=== PATIENT | female | born 1950 | race Caucasian/White ===

== ENCOUNTER 2021-05-26 18:05 | Emergency (ER) | payer OTHER, MEDICAID ==
[~2021-05-26] VITALS: Ht 162.6 cm; Wt 81.8 kg
[2021-05-26 18:09] VITALS: BP 150/84
[2021-05-26 19:15] LABS: BASOPHILS % (AUTO) 0.6 % (0.0-2.0); EOSINOPHILS % (AUTO) 1.8 % (1.0-6.0); HEMOGLOBIN 12.3 g/dL (12.0-16.0); LYMPHOCYTES % (AUTO) 38.9 % (22.0-44.0); MEAN CORPUSCULAR HEMOGLOBIN 30.8 pg (26.0-34.0); MEAN CORPUSCULAR HGB CONC 33.3 G/dL (31.0-37.0); MEAN CORPUSCULAR VOLUME 92 fL (80-100); MONOCYTES # (AUTO) 0.8 K/uL (0.1-1.0); NEUTROPHILS # (AUTO) 3.7 K/uL (1.8-7.7); NEUTROPHILS % (AUTO) 48.7 % (40.0-70.0); PLATELET COUNT (AUTO) 204 K/uL (150-450); RED BLOOD CELL COUNT(AUTO) 4.01 MIL/uL (4.00-5.20); RED CELL DISTRIBUTION WIDTH 14.4 % (11.5-14.5)
[2021-05-26 19:27] LABS: ANION GAP 8 mmol/L (8-16); CALCIUM, TOTAL 9.2 mg/dL (8.8-10.5); CARBON DIOXIDE 28 mmol/L (22-29); CHLORIDE 103 mmol/L (98-107); GLUCOSE,RANDOM 104 mg/dL (70-110); POTASSIUM 4.5 mmol/L (3.5-5.1); SODIUM SERUM 139 mmol/L (136-145); UREA NITROGEN, BLOOD 11 mg/dL (7-18)
[2021-05-26 19:30] LABS: GLOMERULAR FILTR. RATE CALC > 60 mL/min (>60)
== END 2021-05-27 01:14 | disposition home or self-care (01) ==
LOC: EMS 18:08
DX: R06.02 Shortness of breath (principal); R09.81 Nasal congestion; I10 Essential (primary) hypertension
CPT/HCPCS: 71046; 80048; 84484; 85025; 85379; 93005; 99285; 36415-L1; 36415-TC

== ENCOUNTER 2022-04-04 21:35 | Emergency (ER) | payer OTHER, MEDICAID ==
[~2022-04-04] VITALS: Ht 162.6 cm; Wt 75.0 kg
[2022-04-05] MEDS ORDERED: SODIUM CHLORIDE 0.9% 500 ML IV ONE (02:15)
[2022-04-05 02:26] LABS: BASOPHILS % (AUTO) 0.6 % (0.0-2.0); EOSINOPHILS % (AUTO) 0.8 % (1.0-6.0); HEMATOCRIT 37.2 % (36-46); HEMOGLOBIN 12.2 g/dL (12.0-16.0); LYMPHOCYTES # (AUTO) 2.4 K/uL (1.0-4.8); LYMPHOCYTES % (AUTO) 29.1 % (22.0-44.0); MEAN CORPUSCULAR HEMOGLOBIN 30.8 pg (26.0-34.0); MEAN CORPUSCULAR HGB CONC 32.7 G/dL (31.0-37.0); MEAN CORPUSCULAR VOLUME 94 fL (80-100); MONOCYTES % (AUTO) 11.8 % (2.0-9.0); NEUTROPHILS # (AUTO) 4.8 K/uL (1.8-7.7); NEUTROPHILS % (AUTO) 57.7 % (40.0-70.0); PLATELET COUNT (AUTO) 165 K/uL (150-450); RED BLOOD CELL COUNT(AUTO) 3.96 MIL/uL (4.00-5.20); RED CELL DISTRIBUTION WIDTH 14.2 % (11.5-14.5)
[2022-04-05 02:36] LABS: CREATININE 0.92 mg/dL (0.60-1.30); POTASSIUM 4.2 mmol/L (3.5-5.1)
[2022-04-05 02:53] LABS: BILIRUBIN,TOTAL 0.4 mg/dL (0.1-1.0); TOTAL PROTEIN, SERUM 7.8 g/dL (6.4-8.2)
[2022-04-05 04:02] VITALS: BP 117/70
[2022-05-12] MEDS ORDERED: LOSA-382 PO (11:51)
[2022-05-12] MEDS ORDERED: PROM118S5 PO (11:51)
[2022-05-12] MEDS ORDERED: LORA10TA7 PO (11:51)
[2022-05-12] MEDS ORDERED: FERR-72 PO (11:51)
[2022-05-12] MEDS ORDERED: CYCL05OE OU (11:51)
[2022-05-12] MEDS ORDERED: LEVO75 PO (11:51)
[2022-05-12] MEDS ORDERED: ATOR20TA65 PO (11:51)
== END 2022-04-05 04:52 | disposition home or self-care (01) ==
LOC: EMS 21:35
DX: R42 Dizziness and giddiness (principal); F41.9 Anxiety disorder, unspecified; I10 Essential (primary) hypertension
CPT/HCPCS: 99285; 80053; 82550; 83880; 84484; 85025; 36415; 71045; 93005; J7040

== ENCOUNTER 2023-03-24 16:50 | Emergency (ER) | payer OTHER ==
[~2023-03-24] VITALS: Ht 160 cm; Wt 65.9 kg
[~2023-03-24 16:50] MED LIST: ATOR20TA65 PO; CYCL05OE OU; FERR-72 PO; LEVO75 PO; LORA10TA7 PO; LOSA-382 PO; PROM118S5 PO
[2023-03-24 16:56] VITALS: BP 153/89; PULSE 74; RESP 18; TEMP 97.9
== END 2023-03-24 17:08 | disposition left against medical advice (07) ==
LOC: EMS 16:52
DX: I10 Essential (primary) hypertension (principal); R51.9 Headache, unspecified; Z53.21 Procedure and treatment not carried out due to patient leaving prior to being seen by health care provider
CPT/HCPCS: 93005; 99281; Z7502

== ENCOUNTER 2024-11-15 22:44 | Emergency (ER) | payer OTHER ==
[~2024-11-15] VITALS: Ht 162.6 cm; Wt 72.0 kg
[~2024-11-15 22:44] MED LIST changes: -CYCL05OE OU; -FERR-72 PO; -PROM118S5 PO
[2024-11-15 22:55] VITALS: BP 163/69; PULSE 70; RESP 18; TEMP 98.2; O2SAT 98
[2024-11-16] MEDS: ACETAMINOPHEN 500 MG TABLET PO ONE (00:23)
[2024-11-16] MEDS: IBUPROFEN 400 MG TABLET PO ONE (00:23)
[2024-11-16 01:21] LABS: APPEARANCE,URINE CLEAR (CLEAR); GLUCOSE, URINE (UA) NEGATIVE (NEGATIVE); LEUKOCYTE ESTERASE ,URINE MODERATE (NEGATIVE); NITRATE,URINE NEGATIVE (NEGATIVE); OCCULT BLOOD,URINE NEGATIVE (NEGATIVE); SPECIFIC GRAVITIY, URINE 1.008 (1.003-1.030)
== END 2024-11-16 02:22 | disposition home or self-care (01) ==
LOC: EMS 23:07
DX: R30.0 Dysuria (principal); R51.9 Headache, unspecified; I10 Essential (primary) hypertension; E03.9 Hypothyroidism, unspecified; Z79.890 Hormone replacement therapy; Z79.899 Other long term (current) drug therapy; Z91.013 Allergy to seafood
CPT/HCPCS: 81001; 99283